=== PATIENT | male | born 1935 ===

== ENCOUNTER 2023-12-07 01:19 | Emergency (ER) | payer MEDICARE, OTHER ==
[2023-12-07] MEDS ORDERED: MAGNESIUM CITRATE 296 ML BOTTLE ONE (07:29)
--- NOTE | 2024-01-12 12:31 | XR ---
Patient: César Christensen Ordering Physician: Unknown, Unknown ID: [id number] Phone, Pager: Phone: N/ A Pager: N/A : [phone] Age/Gender: 88Y, M Primary Location: N/A Procedure: XR abdomen acute w cx r Study Date: 12/07/2023 6:00:00 AM EXAMINATION TYPE: XR abdomen 2 view DATE OF EXAM: 12/21/2023 11:59 AM CLINICAL INDICATION: Abdominal pain COMPARISON: None. TECHNIQUE: Two radiographic views of the abdomen (upright and supine) and a frontal chest radiograph were obtained. FINDINGS: ABDOMEN: Bowel gas pattern: Normal without dilated loops of small or large bowel. Fecal material and gas are d emonstrated throughout the colon and rectum. Abnormal calcifications: None. Musculoskeletal: Scoliosis changes spine with disc pace narrowing and osteophyte formation. Mild dege neration changes of the hips with osteophyte formation in transverse 9. Atherosclerosis of the arteri al vasculature. Other: None. IMPRESSION: 1. No radiographic evidence for acute abdominal process. 2. No acute cardiopulmonary process in the lung bases. 3. 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 4. Mild degeneration changes of the hips.
== END 2023-12-07 07:30 | disposition home or self-care (01) ==
LOC: EC 01:19
DX: R10.30 Lower abdominal pain, unspecified (principal)
CPT/HCPCS: 51798; 74021; 96374